=== PATIENT | female | born 1985 | race Caucasian/White ===

== ENCOUNTER 2019-01-04 23:52 | Emergency (ER) | payer BC, OTHER ==
[~2019-01-04] VITALS: Ht 165.1 cm; Wt 81.6 kg
[~2019-01-04 23:52] MED LIST: PREN-385 PO
[2019-01-05 00:05] VITALS: BP 132/61
--- NOTE | 2019-01-05 00:05 | NUR ---
TO BED # 05 AMBULATORY
[2019-01-05] MEDS ORDERED: NACL 0.9% 1,000 ML IV SCH (00:18)
[2019-01-05] MEDS ORDERED: ONDANSETRON 4 MG/2 ML VIAL IVP ONE (00:20)
[2019-01-05] MEDS ORDERED: KETOROLAC 30 MG/ML VIAL IVP ONE (00:20)
[2019-01-05 00:35] LABS: BASOPHILS % (AUTO) 0.3 % (0.0-2.0); EOSINOPHILS # (AUTO) 0.1 K/uL (0-0.4); EOSINOPHILS % (AUTO) 0.8 % (0.0-4.0); HEMATOCRIT 35.7 % (36-48); HEMOGLOBIN 12.2 g/dL (12.0-16.0); LYMPHOCYTES # (AUTO) 0.9 K/uL (2.5-16.5); LYMPHOCYTES % (AUTO) 11.6 % (20.5-51.1); MEAN CORPUSCULAR HEMOGLOBIN 30 pg (27-31); MEAN CORPUSCULAR HGB CONC 34 g/dL (33-37); MEAN CORPUSCULAR VOLUME 86.9 fL (80-94); MONOCYTES # (AUTO) 0.1 K/uL (0.8-1.0); MONOCYTES % (AUTO) 1.5 % (1.7-9.3); NEUTROPHILS # (AUTO) 6.8 K/uL (1.8-7.7); NEUTROPHILS % (AUTO) 85.8 % (42.2-75.2); PLATELET COUNT (AUTO) 215 K/uL (140-450); RED BLOOD CELL COUNT(AUTO) 4.11 MIL/uL (4.20-5.40); RED CELL DISTRIBUTION WIDTH 13.4 % (11.6-13.7); WHITE BLOOD COUNT (AUTO) 7.9 K/uL (4.8-10.8)
--- NOTE | 2019-01-05 00:36 | NUR ---
PT TO ED WITH C/O GENERALIZED BODY ACHES, HEADACHE, WITH N/V. ABD IS SOFT NON TENDER. PT WAS SEEN AT [facility] WITH SIMILAR S/S. PT PLACED INTO BED FOR EVAL.
[2019-01-05 00:42] LABS: APPEARANCE,URINE CLEAR (CLEAR); BILIRUBIN,URINE NEGATIVE (NEGATIVE); BLOOD, URINE 1+ (NEGATIVE); COLOR,URINE YELLOW (YELLOW); LEUKOCYTE ESTERASE ,URINE TRACE (NEGATIVE); NITRITE, URINE NEGATIVE (NEGATIVE); UGLUCOSE NEGATIVE (NEGATIVE)
[2019-01-05 00:45] LABS: ANION GAP 14.2 (8-16); CARBON DIOXIDE 28.3 mmol/L (21-32); CREATININE 1.1 mg/dL (0.6-1.3); POTASSIUM 3.5 mmol/L (3.5-5.1)
--- NOTE | 2019-01-05 00:45 | NUR ---
RECEIVED REPORT FROM MARCELLE ZUNIGA. PT IN BED RESTING, WILL CONTINUE TO MONITOR CLOSELY.
[2019-01-05 00:51] LABS: TOTAL BILIRUBIN 0.6 mg/dL (0.0-1.0)
[2019-01-05 00:52] LABS: RBC,URINE 0-5 /HPF (0-5)
[2019-01-05 02:50] VITALS: BP 136/64
--- NOTE | 2019-01-05 02:50 | NUR ---
Patient discharged with v/s stable. Written and verbal after care instructions given and explained. Patient alert, oriented and verbalized understanding of instructions. Ambulatory with steady gait. All questions addressed prior to discharge. ID band removed. Patient advised to follow up with PMD. Rx of PROVERA 10MG, MOTRIN 800MG, CIPRO 500MG, ZOFRAN 8MG AND NORCO 5MG-325MG given. Patient educated on indication of medication including possible reaction and side effects, good hydration and s/s to observe. Opportunity to ask questions provided and answered.
== END 2019-01-05 02:50 | disposition home or self-care (01) ==
LOC: MED 23:52
DX: N93.8 Other specified abnormal uterine and vaginal bleeding (principal); N39.0 Urinary tract infection, site not specified; Z79.899 Other long term (current) drug therapy
CPT/HCPCS: 36415; 80053; 81001; 81025; 83690; 85025; 87086; 87804; 96361; 96374; 96375; 99283; J1885; J2405; J7030